=== PATIENT | male | born 1985 | race Caucasian/White ===

== ENCOUNTER 2018-11-17 12:39 | Emergency (ER) | payer OTHER ==
--- NOTE | 2018-11-17 15:21 | EDM.PDOC ---
ED HPI GENERAL MEDICAL PROBLEM - General Chief Complaint: Flank Pain Stated Complaint: RIB PAIN Time Seen by Provider: 11/17/18 13:15 Source of Information: Reports: Patient History Limitations: Reports: No Limitations - History of Present Illness INITIAL COMMENTS - FREE TEXT/NARRATIVE: patient is a very pleasant 32-year-old male who presents today with concern for fall off of a truck and truck bed to happened about 8:30 this morning. He reports that he was climbing up and it was slick from raining and he slipped, hit the ground landing on his left side. He had immediate pain in his left rib, as well as some pain in his left shoulder and elbow. He remembers hitting the ground, but the next thing he remembers is that he woke up. He does not know how long he was unconscious, but thinks it was no more than a few minutes. He felt difficulty catching his breath, but otherwise does not have any headache, blurry vision, nausea, any feeling of dizziness or unsteadiness on his feet, and no other complaints. He states that he wouldn't have really come and but his girlfriend encouraged him to do so. He states the main problem is the pain in the left side of his rib, which feels like he did when he previously fractured a rib. No shortness of breath or palpitations. No other injury. last tetanus 2 years ago - Related Data Allergies Allergy/AdvReac Type Severity Reaction Status Date / Time Sulfa (Sulfonamide Allergy Hives Verified 11/17/18 12:52 Antibiotics) Home Meds: Home Meds NK [No Known Home Meds] 11/17/18 [History] Past Medical History - Past Health History Medical/Surgical History: Denies Medical/Surgical History Social & Family History - Family History Family Medical History: Noncontributory - Tobacco Use Smoking Status *Q: Never Smoker - Caffeine Use Caffeine Use: Reports: Coffee - Alcohol Use Alcohol Use History: No - Recreational Drug Use Recreational Drug Use: No ED ROS GENERAL - Review of Systems Review Of Systems: ROS reveals no pertinent complaints other than HPI. ED EXAM, GENERAL - Physical Exam Exam: See Below Free Text/Narrative:: Gen.: Alert, very pleasant no acute distress. Head is atraumatic and there is no bruising noted anywhere, neck is freely movable and without any pain, and there is no spinous tenderness in his neck or back. Tympanic membranes are clear bilaterally and there is no posterior bruising. Face is without any abrasions or bruising, pupils are equal and reactive, facial muscles are symmetric, throat is without erythema and mucous members are moist. Uvula is midline. Chest exam shows point tenderness on the left side of the ribcage and a slight overlying contusion is noted. He also has some contusion and abrasion gautam on his left forearm. He is able to freely move his left shoulder and his elbow without any limitations. He has no difficulty with bilateral handgrip, and his gait is normal with equal strength [id number]. No other injuries or lesions are noted. Lungs are clear throughout with good air movement in all marshall and no wheezes or crackles. Heart is regular rate and rhythm. Abdomen positive bowel sounds, soft nondistended nontender. Course - Vital Signs Text/Narrative:: fall from a height, loss of consciousness but without any sequela. Accident was over 5 hours ago and he does not have any symptoms at this time, his neurologic exam is normal and there is no evidence of head trauma psych think it is appropriate did not get any further imaging in this regard. Will get imaging of the left sided ribs and chest to ensure no pneumothorax. Otherwise no other injuries evident Last Recorded V/S: Last Vital Signs Temp 36.4 C 11/17/18 12:40 Pulse 98 11/17/18 15:30 Resp 18 11/17/18 15:30 BP 132/88 11/17/18 15:30 Pulse Ox 98 11/17/18 15:30 - Re-Assessments/Exams Free Text/Narrative Re-Assessment/Exam: chest x-ray returned, no pneumothorax or other acute intrathoracic abnormality, I do not see any obvious rib fractures either but given his clinical exam suspect that he may have at least a small crack. Patient has had fractured rib prior and he is familiar with the treatment for this. Discussed signs or symptoms which should prompt need for immediate follow-up in the emergency room and also signs or symptoms of a subacute concussion which could surface later and the treatment for this. See discharge instructions. Patient was in agreement with this plan and all questions were answered Departure - Departure Time of Disposition: 15:16 Disposition: Home, Self-Care 01 Condition: Good Clinical Impression: Closed rib fracture - Discharge Information *PRESCRIPTION DRUG MONITORING PROGRAM REVIEWED*: Not Applicable *COPY OF PRESCRIPTION DRUG MONITORING REPORT IN PATIENT DEVORAH: Not Applicable Instructions: Rib Fracture Referrals: Deacon Kruse MD [Primary Care Provider] - Forms: ED Department Discharge Additional Instructions: can take ibuprofen 600-800mg (3-4 tabs) up to three times per day heat, ice, anything topical to help relieve pain is fine care with physical activity for next 4 weeks especially, usually takes 6-8 weeks to heal completely note given for guard this weekend does not seem like you had a concussion, but if you develop symptoms of headache , vision feeling funny, other symptoms such as feeling slightly funny or nauseous especially when doing high-intensity mental activities such as on iPhone, videogames, or computer work then decrease mental activity (generally whatever is bothering you) and followup with PCP
--- NOTE | 2018-11-18 09:36 | CR ---
INDICATION: Fell with rib pain - fell off truck bed onto back. LEFT RIBS WITH CHEST: PA chest and four images of the left ribs were obtained 11/17/18 and revealed the heart and mediastinum to be unremarkable. An active infiltrate, effusion, contusion, or pneumothorax was not identified. Bony thorax appears to be intact, including the ribs on the left with multiple views obtained. A BB is noted overlying the posterior ribs at the site of trauma. IMPRESSION: No acute process. MTDD
== END 2018-11-17 15:35 | disposition home or self-care (01) ==
LOC: FB.ED 12:39
DX: S22.32XA Fracture of one rib, left side, initial encounter for closed fracture (principal); S50.12XA Contusion of left forearm, initial encounter; Z88.2 Allergy status to sulfonamides; W01.198A Fall on same level from slipping, tripping and stumbling with subsequent striking against other object, initial encounter; Y93.39 Activity, other involving climbing, rappelling and jumping off
CPT/HCPCS: 71101-LT; 99282

== ENCOUNTER 2023-01-31 11:06 | Emergency (ER) | payer OTHER ==
[2023-01-31] MEDS ORDERED: HYDROmorphone 2 MG/ML SDV IVPUSH ONE ×2 (11:21→12:46)
[2023-01-31] MEDS ORDERED: Ondansetron 4 MG/2 ML SDV IVPUSH ONE (11:22)
[2023-01-31] MEDS ORDERED: Sodium Chloride 0.9% 1,000 ML IV SCH (11:30)
[2023-01-31] MEDS ORDERED: fentaNYL 100 MCG/2 ML SDV IVPUSH ONE (13:15)
== END 2023-01-31 13:40 ==
LOC: FB.ED 11:06
DX: S82.851A Displaced trimalleolar fracture of right lower leg, initial encounter for closed fracture (principal); Z88.0 Allergy status to penicillin; W20.8XXA Other cause of strike by thrown, projected or falling object, initial encounter; Y92.79 Other farm location as the place of occurrence of the external cause; Y93.F2 Activity, caregiving, lifting
CPT/HCPCS: 73560; 73600; 96361; 96374; 96375; 96376; 99284; J1170; J2405; J3010; J7030